=== PATIENT | male | born 1995 | race Caucasian/White ===

== ENCOUNTER 2018-11-10 20:00 | Emergency (ER) | payer OTHER, MEDICAID, SELFPAY ==
[2018-11-10 20:05] VITALS: BP 103/72; PULSE 73; RESP 22; TEMP 36.1; O2SAT 100
--- NOTE | 2018-11-10 20:12 | DI.RAD.S_ITS ---
PROCEDURE: XR WRIST LT MIN 3V INDICATIONS: left wrist deformity TECHNIQUE: 3 views of the wrist were acquired. COMPARISON: None. FINDINGS: Bones: Impacted, moderately displaced, moderately comminuted distal radial fracture with fragmentation of the articular surface and displacement of the radial styloid. Mildly displaced ulnar styloid fracture. No definite carpal fractures. No definite radiocarpal dislocation. No suspicious bony lesions. Soft tissues: No suspicious soft tissue calcifications. IMPRESSION: Moderately displaced, comminuted, intra-articular distal radial fracture. Mildly displaced ulnar styloid fracture. Dictated by: Ritika Wiley M.D. on 11/10/2018 at 21:25 Approved by: Ritika Wiley M.D. on 11/10/2018 at 21:27
--- NOTE | 2018-11-10 20:57 | DI.CT.S_ITS ---
PROCEDURE: CT UE LT WO CON INDICATIONS: comminuted distal radius, per ortho TECHNIQUE: Noncontrast 1 mm axial sections acquired through the carpal bones, with coronal and sagittal reformats. COMPARISON: [facility], CR, XR WRIST LT MIN 3V, 11/10/2018, 20:18. FINDINGS: Image quality: Excellent. Bones: There is a complex comminuted impacted intra-articular fracture involving the distal radius, and the fracture at the distal ulna is essentially nondisplaced by comparison. The comminuted fracture fragments include a portion of the distal articular margin of the radius along the radial border of the radiocarpal joint that is depressed and rotated into the area of fracture, widening the fracture planes (this is seen on sagittal reformatio imaging series 6 image [id number] and also on the coronal reformatio imaging series 4 centered on image 43. A fracture across the base of the radial styloid process is associated with mild lateral displacement and angulation abnormality in a valgus direction. Soft tissues: Soft tissue edema but no hematoma found. IMPRESSION: Complex comminuted impacted and distracted fracture planes are present involving the distal radius, with displacement of a segment of the fracture margins (distal radial articular surface rotated and impacted into the fracture centrally) that results in separation of the fracture components peripherally. Additional fracture across the base of the ulnar styloid process is essentially nondisplaced. In contrast, a diagonal fracture across the base of the radial styloid process is angulated and displaced/rotated in a lateral direction. Orthopedic surgical consultation has been obtained for this young patient.. Dictated by: Sarmad Rawls M.D. on 11/11/2018 at 8:03 Approved by: Sarmad Rawls M.D. on 11/11/2018 at 8:08
--- NOTE | 2018-11-10 20:57 | ED.UPPEXIN ---
HPI - Extremity Injury (Upper) General Chief Complaint: Extremity Injury, Upper Stated Complaint: LT WRIST INJURY Time Seen by Provider: 11/10/18 20:01 Source: patient Mode of arrival: ambulatory Limitations: no limitations History of Present Illness HPI narrative: 23-year-old male nonsmoker and otherwise healthy presents with a chief complaint of a left wrist injury suffered while skateboarding earlier today. He lost control and fell onto an outstretched wrist and now has pain and mild deformity. This injury is isolated, closed and neurovascularly intact. He denies hurting his head, neck or back. He denies any history of wrist injury MD complaint: injury to: left Onset (ago): minute(s) Other injuries: none Handedness: right Place: outdoors Severity: severe Relieving factors: rest Exacerbating factors: movement of extremity Context: fall, direct blow and sports-related injury Associated symptoms: denies other symptoms Treatments prior to arrival: splint Related Data Home Medications Medication Instructions Recorded Confirmed Cetirizine Hydrochloride (ZYRTEC) #0 03/17/11 Previous Rx's Medication Instructions Recorded hydrocodone-acetaminophen 1 tab PO Q4-6H PRN #30 tab 11/10/18 Allergies Allergy/AdvReac Type Severity Reaction Status Date / Time No Known Drug Allergies Allergy Verified 11/10/18 20:05 Review of Systems Constitutional Denies chills, Denies fever(s), Denies lethargy and Denies weakness Eyes Denies change in vision, Denies eye discharge, Denies irritation and Denies loss of vision ENT Ears, Nose, Mouth, and Throat: Denies change in voice, Denies neck pain and Denies sore throat Cardiovascular Denies chest pain, Denies irregular heart rhythm, Denies lightheadedness, Denies palpitations, Denies dyspnea, Denies dyspnea on exertion and Denies orthopnea Respiratory Denies cough, Denies dyspnea, Denies dyspnea on exertion and Denies wheezing Gastrointestinal Gastrointestinal: Denies abdominal pain, Denies change in bowel habits, Denies diarrhea, Denies nausea and Denies vomiting Genitourinary Denies hematuria, Denies flank pain, Denies urinary incontinence and Denies urinary urgency Musculoskeletal Reports joint swelling, Reports limited range of motion and Denies neck pain Integumentary/Breasts Denies pruritus, Denies erythema, Denies rash and Denies wounds Neurologic Denies confusion, Denies loss of vision and Denies weakness Psychiatric Denies anxiety, Denies confusion, Denies depression, Denies homicidal ideation and Denies suicidal ideation Endocrine Denies palpitations Hematologic/Lymphatic Denies easy bruising Allergic/Immunologic Denies wheezing PFSH Social History Smoking Status: Never smoker Social History Smoking Status: Never smoker Exam Narrative Exam Narrative: GENERAL: 23-year-old male obviously uncomfortable, splinting his left wrist HEAD: Atraumatic. Normocephalic. No temporal or scalp tenderness. EYES: Pupils equal round and reactive. Extraocular motions intact. No scleral icterus. No injection or drainage. ENT: Nose without bleeding, purulent drainage or septal hematoma. Throat without erythema, tonsillar hypertrophy or exudate. Uvula midline. Airway patent. NECK: Trachea midline. No JVD or lymphadenopathy. Supple, nontender, no meningeal signs. CARDIOVASCULAR: Regular rate and rhythm without murmurs, gallops, or rubs. RESPIRATORY: Clear to auscultation. Breath sounds equal bilaterally. No wheezes, rales, or rhonchi. GASTROINTESTINAL: Abdomen soft, non-tender, nondistended. No hepato-splenomegaly, or palpable masses. No guarding. EXTREMITIES: Obvious deformity to left wrist and tenderness over the distal radius. This is closed, isolated and neurovascularly intact. Decreased range of motion secondary to pain BACK: Nontender without deformity or crepitance. No flank tenderness. NEURO: AOx3. SKIN: No rash or erythema. Initial Vital Signs Initial Vital Signs: Vital Signs Temperature 97.0 F L 11/10/18 20:05 Pulse Rate 73 11/10/18 20:05 Respiratory Rate 22 11/10/18 20:05 Blood Pressure 103/72 11/10/18 20:05 Pulse Oximetry 100 11/10/18 20:05 Procedures Orthopedic Splinting/Casting Injury #1: Side: left Upper Extremity Injury Location: wrist Upper Extremity Immobilizer: sling/shoulder immobilizer and sugar tong splint Post splinting neuro exam: intact Post splinting vascular exam: intact Placed by: Nursing Course Orders Ordered: ED Orders 11/10/18 20:12 XR wrist LT min 3V Stat 11/10/18 20:57 CT UE LT wo con Stat Discontinued Medications Hydrocodone Bitart/Acetaminophen (Vicodin Prepack) 1 bottle MISC SEEINSTR ONE Stop: 11/10/18 20:58 Last Admin: 11/10/18 21:11 Dose: 1 bottle Hydrocodone Bitart/Acetaminophen ([place] 5/325) 2 tab PO NOW ONE Stop: 11/10/18 20:58 Last Admin: 11/10/18 21:07 Dose: 2 tab Diphtheria/Tetanus/Acell Pertussis (Adacel) 0.5 ml IM .ONCE ONE Stop: 11/10/18 20:58 Last Admin: 11/10/18 21:11 Dose: 0.5 ml Ondansetron HCl (Zofran Odt Prepack) 1 bottle MISC SEEINSTR ONE Stop: 11/10/18 20:58 Last Admin: 11/10/18 21:13 Dose: 1 bottle Consultations Consultation #1: Consultation with Orthopedics and we sharp pain in the Little is likely to be gained by attempt at reduction. He does recommend a CT, splint and follow up for likely surgery Vital Signs - 8 hr 11/10/18 20:05 11/10/18 22:50 11/10/18 22:54 Temperature 97.0 F L Pulse Rate 73 75 69 Respiratory Rate 22 12 Blood Pressure 103/72 112/60 Blood Pressure [Right Arm] 112/60 Pulse Oximetry 100 97 99 MDM - Extremity Injury (Upper) Imaging Data Wrist Imaging: Radiologist's impression: Herb Oscar N 23 M [address] [address] XRay Report Signed Patient: Herb Oscar [facility]#: [id number] : 1995Acct:[id number] Age/Sex: 23 MDate of Service: 11/10/18 Loc: ED Accession Number: [id number] Procedure: XR wrist LT min 3V Ordering Provider: Davin Bautista D.O. PROCEDURE: XR WRIST LT MIN 3V INDICATIONS: left wrist deformity TECHNIQUE: 3 views of the wrist were acquired. COMPARISON: None. FINDINGS: Bones: Impacted, moderately displaced, moderately comminuted distal radial fracture with fragmentation of the articular surface and displacement of the radial styloid. Mildly displaced ulnar styloid fracture. No definite carpal fractures. No definite radiocarpal dislocation. No suspicious bony lesions. Soft tissues: No suspicious soft tissue calcifications. IMPRESSION: Moderately displaced, comminuted, intra-articular distal radial fracture. Mildly displaced ulnar styloid fracture. Dictated by: Ritika Wiley M.D. on 11/10/2018 at 21:25 Approved by: Ritika Wiley M.D. on 11/10/2018 at 21:27 Discharge Plan Departure Patient Disposition: Home Clinical Impression: Fracture of wrist Qualifiers: Encounter type: initial encounter Fracture type: closed Laterality: left Qualified Code(s): S62.102A - Fracture of unspecified carpal bone, left wrist, initial encounter for closed fracture Discharge Date/Time: 11/10/18 22:55 Interventions: ED Discharge Assessment Last Done: 11/10/18 22:54 Instructions: DI for Distal Radius Fracture Activity Restrictions/Additional Instructions: *You have been diagnosed with [acute left distal radius fracture] *What to do: *Take medications as directed *Follow up with [facility], call for an appointment. Let them know you were seen in the Emergency Department and that we ask that you be seen in follow up *Return to ER if you should have any new, worsening or concerning symptoms Prescriptions: New hydrocodone-acetaminophen 5-325 mg tablet 1 tab PO Q4-6H PRN (Reason: pain) Qty: 30 RF: 0 No Action Cetirizine Hydrochloride (ZYRTEC) Qty: 0 RF: 0 Referrals: Albaro Bryson MD [Physician] -
[2018-11-10] MEDS: HYDROCODONE/ACET 5/325 TABLET 2 TAB PO (21:07)
[2018-11-10] MEDS: TET,DIPH,PERTUSS(ACELL),VAC/PF 0.5 ML SYRINGE IM (21:11)
[2018-11-10] MEDS: HYDROCODONE/ACET 5/325 PREPACK 1 BOTTLE MISC (21:11)
[2018-11-10] MEDS: ONDANSETRON 4 MG ODT PREPACK 1 BOTTLE MISC (21:13)
--- NOTE | 2018-11-10 21:21 | ED_ITS ---
HPI - Extremity Injury (Upper) General Chief Complaint: Extremity Injury, Upper Stated Complaint: LT WRIST INJURY Time Seen by Provider: 11/10/18 20:01 Source: patient Mode of arrival: ambulatory Limitations: no limitations History of Present Illness HPI narrative: 23-year-old male nonsmoker and otherwise healthy presents with a chief complaint of a left wrist injury suffered while skateboarding earlier today. He lost control and fell onto an outstretched wrist and now has pain and mild deformity. This injury is isolated, closed and neurovascularly intact. He denies hurting his head, neck or back. He denies any history of wrist injury MD complaint: injury to: left Onset (ago): minute(s) Other injuries: none Handedness: right Place: outdoors Severity: severe Relieving factors: rest Exacerbating factors: movement of extremity Context: fall, direct blow and sports-related injury Associated symptoms: denies other symptoms Treatments prior to arrival: splint Related Data Home Medications Medication Instructions Recorded Confirmed Cetirizine Hydrochloride (ZYRTEC) #0 03/17/11 Previous Rx's Medication Instructions Recorded hydrocodone-acetaminophen 1 tab PO Q4-6H PRN #30 tab 11/10/18 Allergies Allergy/AdvReac Type Severity Reaction Status Date / Time No Known Drug Allergies Allergy Verified 11/10/18 20:05 Review of Systems Constitutional Denies chills, Denies fever(s), Denies lethargy and Denies weakness Eyes Denies change in vision, Denies eye discharge, Denies irritation and Denies loss of vision ENT Ears, Nose, Mouth, and Throat: Denies change in voice, Denies neck pain and Denies sore throat Cardiovascular Denies chest pain, Denies irregular heart rhythm, Denies lightheadedness, Denies palpitations, Denies dyspnea, Denies dyspnea on exertion and Denies orthopnea Respiratory Denies cough, Denies dyspnea, Denies dyspnea on exertion and Denies wheezing Gastrointestinal Gastrointestinal: Denies abdominal pain, Denies change in bowel habits, Denies diarrhea, Denies nausea and Denies vomiting Genitourinary Denies hematuria, Denies flank pain, Denies urinary incontinence and Denies urinary urgency Musculoskeletal Reports joint swelling, Reports limited range of motion and Denies neck pain Integumentary/Breasts Denies pruritus, Denies erythema, Denies rash and Denies wounds Neurologic Denies confusion, Denies loss of vision and Denies weakness Psychiatric Denies anxiety, Denies confusion, Denies depression, Denies homicidal ideation and Denies suicidal ideation Endocrine Denies palpitations Hematologic/Lymphatic Denies easy bruising Allergic/Immunologic Denies wheezing PFSH Social History Smoking Status: Never smoker Social History Smoking Status: Never smoker Exam Narrative Exam Narrative: GENERAL: 23-year-old male obviously uncomfortable, splinting his left wrist HEAD: Atraumatic. Normocephalic. No temporal or scalp tenderness. EYES: Pupils equal round and reactive. Extraocular motions intact. No scleral icterus. No injection or drainage. ENT: Nose without bleeding, purulent drainage or septal hematoma. Throat without erythema, tonsillar hypertrophy or exudate. Uvula midline. Airway patent. NECK: Trachea midline. No JVD or lymphadenopathy. Supple, nontender, no meningeal signs. CARDIOVASCULAR: Regular rate and rhythm without murmurs, gallops, or rubs. RESPIRATORY: Clear to auscultation. Breath sounds equal bilaterally. No wheezes, rales, or rhonchi. GASTROINTESTINAL: Abdomen soft, non-tender, nondistended. No hepato- splenomegaly, or palpable masses. No guarding. EXTREMITIES: Obvious deformity to left wrist and tenderness over the distal radius. This is closed, isolated and neurovascularly intact. Decreased range of motion secondary to pain BACK: Nontender without deformity or crepitance. No flank tenderness. NEURO: AOx3. SKIN: No rash or erythema. Initial Vital Signs Initial Vital Signs: Vital Signs Temperature 97.0 F L 11/10/18 20:05 Pulse Rate 73 11/10/18 20:05 Respiratory Rate 22 11/10/18 20:05 Blood Pressure 103/72 11/10/18 20:05 Pulse Oximetry 100 11/10/18 20:05 Procedures Orthopedic Splinting/Casting Injury #1: Side: left Upper Extremity Injury Location: wrist Upper Extremity Immobilizer: sling/shoulder immobilizer and sugar tong splint Post splinting neuro exam: intact Post splinting vascular exam: intact Placed by: Nursing Course Orders Ordered: ED Orders 11/10/18 20:12 XR wrist LT min 3V Stat 11/10/18 20:57 CT UE LT wo con Stat Discontinued Medications Hydrocodone Bitart/Acetaminophen (Vicodin Prepack) 1 bottle MISC SEEINSTR ONE Stop: 11/10/18 20:58 Last Admin: 11/10/18 21:11 Dose: 1 bottle Hydrocodone Bitart/Acetaminophen ([place] 5/325) 2 tab PO NOW ONE Stop: 11/10/18 20:58 Last Admin: 11/10/18 21:07 Dose: 2 tab Diphtheria/Tetanus/Acell Pertussis (Adacel) 0.5 ml IM .ONCE ONE Stop: 11/10/18 20:58 Last Admin: 11/10/18 21:11 Dose: 0.5 ml Ondansetron HCl (Zofran Odt Prepack) 1 bottle MISC SEEINSTR ONE Stop: 11/10/18 20:58 Last Admin: 11/10/18 21:13 Dose: 1 bottle Consultations Consultation #1: Consultation with Orthopedics and we sharp pain in the Little is likely to be gained by attempt at reduction. He does recommend a CT, splint and follow up for likely surgery Vital Signs - 8 hr 11/10/18 20:05 11/10/18 22:50 11/10/18 22:54 Temperature 97.0 F L Pulse Rate 73 75 69 Respiratory Rate 22 12 Blood Pressure 103/72 112/60 Blood Pressure [Right Arm] 112/60 Pulse Oximetry 100 97 99 MDM - Extremity Injury (Upper) Imaging Data Wrist Imaging: Radiologist's impression: Herb Oscar N 23 M [address] [address] XRay Report Signed Patient: Herb Oscar [facility]#: [id number] : 1995Acct:[id number] Age/Sex: 23 MDate of Service: 11/10/18 Loc: ED Accession Number: [id number] Procedure: XR wrist LT min 3V Ordering Provider: Davin Bautista D.O. PROCEDURE: XR WRIST LT MIN 3V INDICATIONS: left wrist deformity TECHNIQUE: 3 views of the wrist were acquired. COMPARISON: None. FINDINGS: Bones: Impacted, moderately displaced, moderately comminuted distal radial fracture with fragmentation of the articular surface and displacement of the radial styloid. Mildly displaced ulnar styloid fracture. No definite carpal fractures. No definite radiocarpal dislocation. No suspicious bony lesions. Soft tissues: No suspicious soft tissue calcifications. IMPRESSION: Moderately displaced, comminuted, intra-articular distal radial fracture. Mildly displaced ulnar styloid fracture. Dictated by: Ritika Wiley M.D. on 11/10/2018 at 21:25 Approved by: Ritika Wiley M.D. on 11/10/2018 at 21:27 Discharge Plan Departure Patient Disposition: Home Clinical Impression: Fracture of wrist Qualifiers: Encounter type: initial encounter Fracture type: closed Laterality: left Qualified Code(s): S62.102A - Fracture of unspecified carpal bone, left wrist, initial encounter for closed fracture Discharge Date/Time: 11/10/18 22:55 Interventions: ED Discharge Assessment Last Done: 11/10/18 22:54 Instructions: DI for Distal Radius Fracture Activity Restrictions/Additional Instructions: *You have been diagnosed with [acute left distal radius fracture] *What to do: *Take medications as directed *Follow up with [facility], call for an appointment. Let them know you were seen in the Emergency Department and that we ask that you be seen in follow up *Return to ER if you should have any new, worsening or concerning symptoms Prescriptions: New hydrocodone-acetaminophen 5-325 mg tablet 1 tab PO Q4-6H PRN (Reason: pain) Qty: 30 RF: 0 No Action Cetirizine Hydrochloride (ZYRTEC) Qty: 0 RF: 0 Referrals: Albaro Bryson MD [Physician] -
[2018-11-10 22:50] VITALS: BP 112/60; PULSE 75; O2SAT 97
[2018-11-10 22:54] VITALS: BP 112/60; PULSE 69; RESP 12; O2SAT 99
== END 2018-11-10 22:55 | disposition home or self-care (01) ==
PROVIDERS: Emergency Provider Emergency Medicine
DX: S62.102A Fracture of unspecified carpal bone, left wrist, initial encounter for closed fracture (principal); W19.XXXA Unspecified fall, initial encounter; Y93.51 Activity, roller skating (inline) and skateboarding; Z23 Encounter for immunization
CPT/HCPCS: 29105; 73110; 73200; 90471; 99282; 99284; 90715